=== PATIENT | male | born 1980 | race Caucasian/White ===

== ENCOUNTER 2018-01-16 17:41 | Observation (INO) ==
[2018-01-16] MEDS ORDERED: 0.9 % Sodium Chloride 1,000 ML IVC ONE ×2 (17:57→18:52)
--- NOTE | 2018-01-16 18:11 | Emergency Department Note ---
Disposition Clinical Impression: Dehydration Rhabdomyolysis Qualifiers: Rhabdomyolysis type: non-traumatic Qualified Code(s): M62.82 - Rhabdomyolysis Heat exhaustion Qualifiers: Encounter type: initial encounter Qualified Code(s): T67.5XXA - Heat exhaustion , unspecified, initial encounter Disposition: Admitted As Inpatient Condition: Good Referrals: Bushra Segura A AND P TECHNICIAN [Primary Care Provider] - [place] CNP [Family Provider] - Forms: ED Satisfaction Letter, Work/School Release Time of Disposition: 19:54 General Adult HPI - General Chief complaint: ED General Medical Stated complaint: Upper respiratory infection Time Seen by Provider: 01/16/18 17:56 Nursing Notes Reviewed: Yes Vital Signs Reviewed: Yes - History of Present Illness HPI Narrative: 37-year-old previously healthy gentleman presents from home for evaluation of concerns of dehydration. Patient works outside and has been out in the heat working including Sunday and Sunday wherein there were heat advisories. He tends to stay well-hydrated alternating water and Gatorade as well as drinking Pedialyte however, is concerned that he may have not been able to keep up. He describes generalized weakness, mild shortness of breath with exertion, twitching of the muscles of the left upper and lower extremities as well as nausea yesterday and loose stools 1 today. He has no family history of cardiac disease and management under 55 for woman under 65. No daily medications. No medical history of COPD, CAD or ACS, diabetes, renal dysfunction. Habits: Currently everyday [id number]-year history. No EtOH. Only illiciy is occasional THC. ROS: Positive: As above Negative: Fever, chills, vomiting, chest pain, palpitations, fever, chills, productive cough, dysuria, trauma. No melena or hematochezia. Pain Scale: 0 - Related Data Allergies Allergy/AdvReac Type Severity Reaction Status Date / Time No Known Allergies Allergy Verified 01/16/18 17:46 All systems ED: reviewed and negative except as stated. Review of Systems: As Per HPI Physical Exam Vital Signs Reviewed General: Patient is alert, oriented, and in no acute distress. He appears tired Head: atraumatic, normocephalic Eye: normal appearance, PERRL, EOMI, no scleral icterus, no conjunctival injection ENT: mucous membranes tacky, normal external ear exam Neck: normal inspection, trachea midline, full ROM Chest: normal inspection, symmetric chest rise Respiratory: Good respiratory effort. Bilateral breath sounds are clear without wheezing, crackles, or rhonchi. Cardiovascular: Regular rate and rhythm. No clicks, rubs, gallops, or murmors. Normal heart sounds. Abdomen: Bowel sounds present normoactive x-4 quadrants. Abdomen is soft, nondistended, and nontender. No guarding or rebound. No organomegaly noted. Musculoskeletal: Spontaneously moving all extremities. Skin: warm, dry, intact. Neuro: Alert and oriented x4. Sensation light touch intact. Strength 5/5 and equal in upper and lower extremities. DTR 2/4 and equal bilaterally in the brachioradial and patellar tendons. Psych: Patient's affect is appropriate for situation. Course Course Narrative: Patient is wearing a ball Which is new to him as of Sunday. This ball cap has multiple salt/sweat stains only from the last 2 days of working. He describes flulike symptoms concerning for rhabdomyolysis he continues to self-care with copious water and Pedialyte. Suspect this may have led to a single episode of loose stools. Patient's lab work showed rhabdomyolysis. Otherwise unremarkable. Patient continues to receive IV fluids; currently on second liter. I discussed the above with the patient and his . I discussed the cause of his symptoms in the context of muscle breakdown and my concern about potential kidney failure. I discussed the patient with the admitting hospitalist, Dr. Joseph, who agrees to accept the patient for continued evaluation and management. Vital Signs Temperature 97.8 F 01/16/18 17:44 Pulse Rate 69 01/16/18 17:44 Respiratory Rate 18 01/16/18 17:44 Blood Pressure 130/73 01/16/18 17:44 O2 Sat by Pulse Oximetry 98 01/16/18 17:44 Temperature 97.8 F 01/16/18 18:14 Pulse Rate 60 01/16/18 19:07 Respiratory Rate 18 01/16/18 19:07 Blood Pressure 130/91 01/16/18 19:07 O2 Sat by Pulse Oximetry 100 01/16/18 19:07 Oxygen Delivery Oxygen Delivery Room Air Medical Decision Making - Lab Data Result diagrams: 01/16/18 18:21 01/16/18 17:57 Lab Results 06/20/18 06/20/18 Range/Units 17:57 18:21 WBC 6.3 (4.3-11.1) K/mcL RBC 4.49 (4.19-5.50) M/mcL Hgb 14.6 (12.9-16.9) g/dL Hct 41.4 (37.5-50.1) % MCV 92.2 (83.0-100.0) fL MCH 32.5 (28.0-33.3) pg MCHC 35.3 (31.6-35.5) g/dL RDW 12.5 (11.5-14.5) % Plt Count 278 (140-400) K/mcL MPV 10.0 (9.4-12.4) fL Immature Gran % 0.3 (0-4) % Seg Neutrophils % 65.0 % Lymphocytes % 24.0 % Monocytes % 9.2 % Eosinophils % 1.0 % Basophils % 0.5 % Neutrophils # 4.1 (1.6-8.9) K/mcL Lymphocytes # 1.5 (0.6-4.6) K/mcL Monocytes # 0.6 (0.0-1.3) K/mcL Eosinophils # 0.1 (0.0-0.6) K/mcL Basophils # 0.0 (0.0-0.2) K/mcL Sodium 137 (136-145) mEq/L Potassium 4.1 (3.5-5.1) mEq/L Chloride 104 (98-107) mEq/L Carbon Dioxide 28 (23-29) mEq/L BUN 17 (6-20) mg/dL Creatinine 0.94 (0.70-1.30) mg/dL Est GFR ( Amer) > 60 (> 60) Est GFR (Non-Af Amer) > 60 (> 60) BUN/Creatinine Ratio 18 (6-26) Glucose 84 (70-105) mg/dL Calculated Osmolality 285 (280-300) Calcium 9.5 (8.6-10.3) mg/dL Creatine Kinase 2371 H (30-223) Units/L
[2018-01-16 18:31] LABS: Basophils % 0.5 %; Eosinophils # 0.1 K/mcL (0.0-0.6); Hematocrit 41.4 % (37.5-50.1); Hemoglobin 14.6 g/dL (12.9-16.9); Immature Granulocytes % 0.3 % (0-4); Lymphocytes # 1.5 K/mcL (0.6-4.6); Mean Corpuscular HGB Conc 35.3 g/dL (31.6-35.5); Mean Corpuscular Hemoglobin 32.5 pg (28.0-33.3); Mean Corpuscular Volume 92.2 fL (83.0-100.0); Monocytes # 0.6 K/mcL (0.0-1.3); Monocytes % 9.2 %; Neutrophils # 4.1 K/mcL (1.6-8.9); Platelet Count 278 K/mcL (140-400); Red Blood Count 4.49 M/mcL (4.19-5.50); Red Cell Distribution Width 12.5 % (11.5-14.5)
--- NOTE | 2018-01-16 18:48 | Emergency Department Note ---
Disposition Clinical Impression: Dehydration Disposition: Still a Patient Referrals: Bushra Segura CNP [Primary Care Provider] - Georgia Bishop CNP [Family Provider] - Forms: ED Satisfaction Letter, Work/School Release General Adult HPI - General Chief complaint: ED General Medical Stated complaint: Upper respiratory infection Time Seen by Provider: 01/16/18 17:56 - History of Present Illness Pain Scale: 0 - Related Data Allergies Allergy/AdvReac Type Severity Reaction Status Date / Time No Known Allergies Allergy Verified 01/16/18 17:46 Past Medical History - Past Medical History Medical history: Reports: no medical history - Social History Smoking Status: Current every day smoker Course Vital Signs Temperature 97.8 F 01/16/18 17:44 Pulse Rate 69 01/16/18 17:44 Respiratory Rate 18 01/16/18 17:44 Blood Pressure 130/73 01/16/18 17:44 O2 Sat by Pulse Oximetry 98 01/16/18 17:44 Temperature 97.8 F 01/16/18 18:14 Pulse Rate 69 01/16/18 18:14 Respiratory Rate 18 01/16/18 18:14 Blood Pressure 130/73 01/16/18 18:14 O2 Sat by Pulse Oximetry 98 01/16/18 18:14 Oxygen Delivery Oxygen Delivery Room Air Medical Decision Making - Lab Data Result diagrams: 01/16/18 18:21 Lab Results 01/16/18 Range/Units 18:21 WBC 6.3 (4.3-11.1) K/mcL RBC 4.49 (4.19-5.50) M/mcL Hgb 14.6 (12.9-16.9) g/dL Hct 41.4 (37.5-50.1) % MCV 92.2 (83.0-100.0) fL MCH 32.5 (28.0-33.3) pg MCHC 35.3 (31.6-35.5) g/dL RDW 12.5 (11.5-14.5) % Plt Count 278 (140-400) K/mcL MPV 10.0 (9.4-12.4) fL Immature Gran % 0.3 (0-4) % Seg Neutrophils % 65.0 % Lymphocytes % 24.0 % Monocytes % 9.2 % Eosinophils % 1.0 % Basophils % 0.5 % Neutrophils # 4.1 (1.6-8.9) K/mcL Lymphocytes # 1.5 (0.6-4.6) K/mcL Monocytes # 0.6 (0.0-1.3) K/mcL Eosinophils # 0.1 (0.0-0.6) K/mcL Basophils # 0.0 (0.0-0.2) K/mcL Attestation Statement - Attestation Attestation: I examined this patient and my medical decision-making was reviewed with the Resident Physician. I agree with the documented findings, disposition and treatment plan as described except to the extent set forth below. 37 year old male prente to the ED with compalints of flu like symptoms and has been working and appears to be moderately dehydrated. PAtinet has been drinking Pedia-lyte continously and still feels dehydrated. WE will rule out rhabdo and continue IVF hydration
[2018-01-16 19:19] LABS: BUN/Creatinine Ratio 18 (6-26); Blood Urea Nitrogen 17 mg/dL (6-20); Calcium 9.5 mg/dL (8.6-10.3); Carbon Dioxide 28 mEq/L (23-29); Chloride 104 mEq/L (98-107); Creatine Kinase 2371 Units/L (30-223); Glucose 84 mg/dL (70-105); Osmolality,Calculated 285 (280-300); Potassium 4.1 mEq/L (3.5-5.1); Sodium 137 mEq/L (136-145); eGFR For African Americans > 60 (> 60); eGFR For Non-African Americans > 60 (> 60)
--- NOTE | 2018-01-16 19:52 | Emergency Department Note ---
Disposition Clinical Impression: Dehydration Disposition: Still a Patient Referrals: Bushra Segura CNP [Primary Care Provider] - Georgia Bishop CNP [Family Provider] - Forms: ED Satisfaction Letter, Work/School Release General Adult HPI - General Chief complaint: ED General Medical Stated complaint: Upper respiratory infection Time Seen by Provider: 01/16/18 17:56 Nursing Notes Reviewed: Yes Vital Signs Reviewed: Yes - History of Present Illness Pain Scale: 0 - Related Data Allergies Allergy/AdvReac Type Severity Reaction Status Date / Time No Known Allergies Allergy Verified 01/16/18 17:46 Past Medical History - Past Medical History Medical history: Reports: no medical history - Social History Smoking Status: Current every day smoker Course Vital Signs Temperature 97.8 F 01/16/18 17:44 Pulse Rate 69 01/16/18 17:44 Respiratory Rate 18 01/16/18 17:44 Blood Pressure 130/73 01/16/18 17:44 O2 Sat by Pulse Oximetry 98 01/16/18 17:44 Temperature 97.8 F 01/16/18 18:14 Pulse Rate 60 01/16/18 19:07 Respiratory Rate 18 01/16/18 19:07 Blood Pressure 130/91 01/16/18 19:07 O2 Sat by Pulse Oximetry 100 01/16/18 19:07 Oxygen Delivery Oxygen Delivery Room Air Medical Decision Making - Lab Data Lab results reviewed: Yes I reviewed the patient's lab results. Result diagrams: 01/16/18 18:21 01/16/18 17:57 Lab Results 01/16/18 01/16/18 Range/Units 17:57 18:21 WBC 6.3 (4.3-11.1) K/mcL RBC 4.49 (4.19-5.50) M/mcL Hgb 14.6 (12.9-16.9) g/dL Hct 41.4 (37.5-50.1) % MCV 92.2 (83.0-100.0) fL MCH 32.5 (28.0-33.3) pg MCHC 35.3 (31.6-35.5) g/dL RDW 12.5 (11.5-14.5) % Plt Count 278 (140-400) K/mcL MPV 10.0 (9.4-12.4) fL Immature Gran % 0.3 (0-4) % Seg Neutrophils % 65.0 % Lymphocytes % 24.0 % Monocytes % 9.2 % Eosinophils % 1.0 % Basophils % 0.5 % Neutrophils # 4.1 (1.6-8.9) K/mcL Lymphocytes # 1.5 (0.6-4.6) K/mcL Monocytes # 0.6 (0.0-1.3) K/mcL Eosinophils # 0.1 (0.0-0.6) K/mcL Basophils # 0.0 (0.0-0.2) K/mcL Sodium 137 (136-145) mEq/L Potassium 4.1 (3.5-5.1) mEq/L Chloride 104 (98-107) mEq/L Carbon Dioxide 28 (23-29) mEq/L BUN 17 (6-20) mg/dL Creatinine 0.94 (0.70-1.30) mg/dL Est GFR ( Amer) > 60 (> 60) Est GFR (Non-Af Amer) > 60 (> 60) BUN/Creatinine Ratio 18 (6-26) Glucose 84 (70-105) mg/dL Calculated Osmolality 285 (280-300) Calcium 9.5 (8.6-10.3) mg/dL Creatine Kinase 2371 H (30-223) Units/L - Radiology Data Radiology results reviewed: Yes I reviewed the patient's radiology results. Chest X-Ray 01/16/18 17:57 IMPRESSION: No acute process. D/ / Ricardo Yen MD / Ricardo Yen MD Interpreting Provider: Ricardo Yen MD Attestation Statement - Attestation Attestation: I, Sridhar Odonnell MD, personally evaluated this patient and discussed their management with the resident physician. I reviewed the resident's note and agree with the documented findings, medical decision making, and plan of care. This patient was signed out at shift change from Dr. Rebecca Ramos. Patient presented with some flulike symptoms of muscle aches after working a lot out in the heat for the past several days. Concern for rhabdomyolysis. At shift change patient is awaiting CK results. On examination patient is a well-developed well-nourished well-appearing male in no acute distress. He is alert and oriented 3. There is no cyanosis or diaphoresis. CK returned 2371. Patient received 2 L of IV fluid in the emergency department. The hospitalist, Dr. Joseph, was consulted and accepted admission of the patient.
--- NOTE | 2018-01-16 20:49 | Internal Med History&Physical ---
Date of Encounter: 01/16/18 Time of Encounter: 20:02 Internal Medicine - H&P: HPI Chief complaint: generalized weakness Admitted From: Home Plans for Post Hospital Care: Home History of present illness: Mr. Longoria is a 37 year old male with past medical history of depression and anxiety who presented ot the ED with diffuse muscle cramping and SOB. Patient states that he began to have intermittent muscle cramping last week but it did not get bad until Sunday at his [employer] job where he worked 10 hours and he had muscle cramping most of the day with associated generalized weakness, light headed, and stopped sweating. He tried to hydrate yesterday by drinking Pedialyte but still had decrease urination, voiding 3 times throughout the day and dark urine. He stayed home from work yesterday due to his symptoms and came in today because he began to have SOB with mild excretion. He denied muscle pain until the last 2 days and contributes it to the cramping. Pain is still present in his right calf and left flank. His leg has not been red. Denies alcohol use, fever, rash, CP, palpitations. Upon arrival to the ED, patient's vitals are within normal limits. Electrolytes are within normal limits. Patient did have an elevated creatinine of 2371. Chest x-ray showed no acute process. Patient was given 2 L bolus of normal saline. Patient was admitted to the floor for possible rhabdomyosis and dehydration. Past Med Surg Social Fam HX - Past Medical History Medical history: no medical history - Social History Smoking Status: Current every day smoker Internal Medicine - H&P: Meds FLUoxetine HCl [Fluoxetine HCl] 40 mg PO DAILY 01/16/18 [History] Ibuprofen [Ibu] 800 mg PO DAILY PRN 01/16/18 [History] Pantoprazole Sodium 40 mg PO DAILY 01/16/18 [History] risperiDONE [Risperidone] 1 mg PO BID 01/16/18 [History] 3 Allergy/AdvReac Type Severity Reaction Status Date / Time No Known Allergies Allergy Verified 01/16/18 17:46 All Systems PM: A 10-system review of systems was performed and is negative for pertinent findings except as documented above in the HPI. - Constitutional Vitals: Temp Pulse Resp BP Pulse Ox 97.8 F 60 18 130/91 100 01/16/18 18:14 01/16/18 19:07 01/16/18 19:07 01/16/18 19:07 01/16/18 19:07 Exam: Constitutional: Alert, in no acute distress Head: Normocephalic, atraumatic Heart: Normal, regular rate and rhythm, no murmurs Lungs: Clear to auscultation, no wheezes, rales, or rhonchi Abdomen: Soft, nondistended, nontender, no guarding or rigidity. Extremities: right calf tender with palpation but no erythema or calor, pedal pulse 2/4, No edema, No clubbing, radial pulse +2/4, capillary refill <2sec. Skin: Skin warm and dry, no lesions, no rashes, no jaundice Neurologic: Cranial nerves II through XII grossly intact, strength 5/5 in all extremities Psych: Cooperative with exam, good eye contact, cognitive function intact, speech clear, thought process logical, and goal directed Internal Med - H&P Results - Labs CBC & Chem 7: 01/16/18 18:21 01/16/18 17:57 Labs: Short CBC 01/16/18 Range/Units 18:21 WBC 6.3 (4.3-11.1) K/mcL Hgb 14.6 (12.9-16.9) g/dL Hct 41.4 (37.5-50.1) % Plt Count 278 (140-400) K/mcL Neutrophils # 4.1 (1.6-8.9) K/mcL BMP 01/16/18 17:57 Sodium 137 Potassium 4.1 Chloride 104 Carbon Dioxide 28 BUN 17 Creatinine 0.94 Glucose 84 Calcium 9.5 - Impressions ITS Impressions Chest X-Ray 01/16/18 17:57 IMPRESSION: No acute process. D/ / Ricardo Yen MD / Ricardo Yen MD Interpreting Provider: Ricardo Yen MD - Assessment and plan (1) Rhabdomyolysis Current Visit: No Status: Acute Assessment and plan: Patient complaining of generalized weakness, muscle cramping, and dark urine. CK = 2371, well above 5x the normal limit. Currently electrolytes and creatinine are wnl. Patient given 2L bolus of NS in the ED. Plan: - NS 400ml/hr for 2L, then decrease to 200ml/hr - repeat CK level in the AM - check phos, albumin, mg Qualifiers: Rhabdomyolysis type: non-traumatic Qualified Code(s): M62.82 - Rhabdomyolysis (2) Dehydration Current Visit: No Status: Acute Assessment and plan: Decrease urine output, lightheaded, generalized weakness after working outside for 10 hours. No electrolyte abnormalities though. Continue aggressive rehydration with IV fluids. (3) Pain of left calf Current Visit: Yes Status: Acute Assessment and plan: Patient complaining of pain in his left calf. No redness or warmth. pulse present. Most likely 2/2 to rhabdo, dehydration, or muscle strain. No concerns at this time for a DVT. Will continue to monitor. Patient was placed on heparin for DVT prophylaxis. (4) DVT prophylaxis Current Visit: No Status: Acute Assessment and plan: Heparin SQ - Time Spent With Patient Total time spent is greater than 50% in coordination of care (as documented) at patient's floor/unit and/or counseling patient:
[2018-01-16] MEDS ORDERED: Naloxone 0.4 MG/ML INJ IVP PRN (21:04)
[2018-01-16] MEDS: 0.9 % Sodium Chloride 1,000 ML IVC SCH (21:57)
[2018-01-17] MEDS: 0.9 % Sodium Chloride 1,000 ML IVC SCH ×5 (00:42→16:16)
[2018-01-17] MEDS: *HR* Heparin 5,000 UNIT/ML VIAL SQ SCH ×3 (00:45→18:35)
[2018-01-17 06:54] LABS: Alanine Aminotransferase 32 Units/L (7-52); Albumin 3.4 g/dL (3.5-5.7); Albumin/Globulin Ratio 1.8 (1.1-2.2); Alkaline Phosphatase 48 Units/L (34-104); Aspartate Amino Transferase 64 Units/L (13-39); BUN/Creatinine Ratio 20 (6-26); Bilirubin,Total 0.2 mg/dL (0.3-1.0); Blood Urea Nitrogen 17 mg/dL (6-20); Calcium 8.2 mg/dL (8.6-10.3); Carbon Dioxide 27 mEq/L (23-29); Chloride 112 mEq/L (98-107); Globulin 1.9 g/dL (2.4-3.5); Glucose 86 mg/dL (70-105); Magnesium 1.9 mg/dL (1.6-2.6); Osmolality,Calculated 293 (280-300); Phosphorous 2.7 mg/dL (2.7-4.5); Potassium 4.7 mEq/L (3.5-5.1); Sodium 141 mEq/L (136-145); Total Protein 5.3 g/dL (6.4-8.9); eGFR For African Americans > 60 (> 60); eGFR For Non-African Americans > 60 (> 60)
--- NOTE | 2018-01-17 08:59 | Event Note ---
Date of Encounter: 01/16/18 Time of Encounter: 21:30 I saw and evaluated the patient. I reviewed the residents note and agree with findings and plan as documented in the residents note.
[2018-01-17] MEDS: FLUoxetine 20 MG CAPSULE PO SCH (09:42)
--- NOTE | 2018-01-17 10:38 | Internal Med Progress Note ---
Date of Encounter: 01/17/18 Time of Encounter: 10:34 - Assessment and plan (1) Rhabdomyolysis Current Visit: No Status: Acute Assessment and plan: Patient complaining of generalized weakness, muscle cramping, and dark urine. 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 and was not hydrating appropriately Rhabdomyolysis likely 2/2 dehydration and over exertion Repeat CK, 1894, renal function remained stable Has received 5 L normal saline, continue IVF at 125 mL per hour Recheck CK this afternoon then daily Monitoring electrodes closely and replete as necessary Closely monitor intake and output and renal function Encouraged to increase oral intake As long as renal function remains stable and CK continues to decrease consider discharge tomorrow Qualifiers: Rhabdomyolysis type: non-traumatic Qualified Code(s): M62.82 - Rhabdomyolysis (2) Dehydration Current Visit: No Status: Inactive Assessment and plan: Admitted with dehydration and rhabdomyolysis Has received 5 L of normal saline Urinary output improving, generalized weakness, lightheadedness and dizziness improving No electrolyte abnormalities on today's labs Decrease IVF to 125 mL per hour Continue to monitor his lites and replete as necessary (3) Pain of left calf Current Visit: Yes Status: Acute Assessment and plan: Mild left calf pain No swelling, erythema or tenderness to palpation PT/DP pulses palpable Most likely 2/2 rhabdomyolysis and dehydration No concerns for DVT at this time, SQ heparin for DVT prophylaxis (4) DVT prophylaxis Current Visit: No Status: Acute Assessment and plan: SQ heparin - Time Spent With Patient Total time spent is greater than 50% in coordination of care (as documented) at patient's floor/unit and/or counseling patient: 25 - 35 minutes - Subjective Interval history: Patient seen and examined at bedside today. No acute changes overnight. Continued reports some mild left calf pain but denies any swelling or tenderness. - Constitutional Vitals: Temp Pulse Resp BP Pulse Ox 98.4 F 66 16 107/59 98 01/17/18 10:03 01/17/18 10:03 01/17/18 10:03 01/17/18 10:03 01/17/18 10:03 General appearance: Present: A&O X 3, no acute distress, answers questions appropriately - Head Head exam: Present: atraumatic, normocephalic - Eye Eye exam: Present: PERRL, conjuntiva pink, sclera anicteric Pupils: Present: PERRL - Neck Neck exam general surgery: Present: supple, trachea midline. Absent: lymphadenopathy - Respiratory Respiratory exam: Present: CTAB. Absent: accessory muscle use, rales, rhonchi, wheezes - Cardiovascular Cardiovascular exam: Present: RRR, +S1, +S2. Absent: diastolic murmur, gallop, rubs, systolic murmur - GI/Abdominal GI/Abdominal exam: Present: normal bowel sounds, soft, no peritoneal signs. Absent: distended, tenderness - Extremities Exam Extremities exam: Present: warm, radial pulses palpable and symmetrical. Absent : calf tenderness, cyanotic, pedal edema - Neurological Exam Neurological exam: Present: CN II-XII intact, oriented X3, no focal deficits. Absent: pronater drift, facial droop, speech deficit - Skin Skin exam: Present: dry, intact Internal Medicine: Result - Labs CBC & Chem 7: 01/16/18 18:21 01/17/18 04:47 Labs: BMP 01/17/18 04:47 Sodium 141 Potassium 4.7 Chloride 112 H Carbon Dioxide 27 BUN 17 Creatinine 0.84 Glucose 86 Calcium 8.2 L Liver Function 01/17/18 Range/Units 04:47 Total Bilirubin 0.2 L (0.3-1.0) mg/dL AST 64 H (13-39) Units/L ALT 32 (7-52) Units/L Alkaline Phosphatase 48 (34-104) Units/L Albumin 3.4 L (3.5-5.7) g/dL Consult Discharge Plan - Plan Referrals: Bushra Segura CNP [Primary Care Provider] -
[2018-01-17 16:32] LABS: Bilirubin,Urine Negative (Negative); Blood,Urine Negative (Negative); Clarity,Urine Clear (Clear); Color,Urine Yellow (Yellow); Glucose,Urine (UA) 100 mg/dL (Normal); Ketones,Urine Negative (Negative); Leukocyte Esterase,Urine Negative (Negative); Nitrite,Urine Negative (Negative); Protein,Urine Negative (Neg-Trace); Specific Gravity,Urine 1.018 (1.010-1.025); Urobilinogen,Urine Normal (Normal)
[2018-01-17] MEDS: risperiDONE 1 MG TABLET PO SCH (22:23)
[2018-01-18] MEDS: 0.9 % Sodium Chloride 1,000 ML IVC SCH ×2 (00:37→08:29)
[2018-01-18 06:46] VITALS: BP 127/76
[2018-01-18] MEDS: *HR* Heparin 5,000 UNIT/ML VIAL SQ SCH (08:08)
[2018-01-18] MEDS: risperiDONE 1 MG TABLET PO SCH (08:11)
[2018-01-18] MEDS: FLUoxetine 20 MG CAPSULE PO SCH (08:11)
--- NOTE | 2018-01-18 10:15 | Discharge Summary ---
Date of Encounter: 01/18/18 Time of Encounter: 10:11 - Discharge Diagnosis (1) Rhabdomyolysis Priority: Primary Status: Resolved Qualifiers: Rhabdomyolysis type: non-traumatic Qualified Code(s): M62.82 - Rhabdomyolysis (2) DVT prophylaxis Priority: Secondary Status: Resolved (3) Pain of left calf Priority: Secondary Status: Resolved Hospital course: Mr. Longoria is a 37 year old male with past medical history of depression and anxiety who presented ot the ED with diffuse muscle cramping and SOB. Patient states that he began to have intermittent muscle cramping last week but it did not get bad until Sunday at his [employer] job where he worked 10 hours and Upon arrival to the ED, patient's vitals are within normal limits. Electrolytes are within normal limits. Patient did have an elevated creatinine of 2371. Chest x-ray showed no acute process. Patient was given 2 L bolus of normal saline. Patient was admitted to the floor for possible rhabdomyosis and dehydration. paient is doing well, calf pain resolved and CK trending down, he has been tolerating diet. Patient is discharged on stable condition. Discharge discussed with: patient, family Time spent discussing smoking cessation with patient: 3 to 10 minutes - Time Spent with Patient Total time spent providing and/or coordinating discharge services: Less than 30 minutes - Discharge Medications Home Medications: FLUoxetine HCl [Fluoxetine HCl] 40 mg PO DAILY 01/16/18 [History] Ibuprofen [Ibu] 800 mg PO DAILY PRN 01/16/18 [History] Pantoprazole Sodium 40 mg PO DAILY 01/16/18 [History] risperiDONE [Risperidone] 1 mg PO BID 01/16/18 [History] Allergies/Adverse Reactions: 3 Allergy/AdvReac Type Severity Reaction Status Date / Time No Known Allergies Allergy Verified 01/16/18 17:46 Date of admission: 01/16/18 20:08 Primary care physician: Bushra Segura CNP - Constitutional Vitals: Temp Pulse Resp BP Pulse Ox 97.8 F 59 16 127/76 99 01/18/18 06:42 01/18/18 06:42 01/18/18 06:42 01/18/18 06:42 01/18/18 06:42 General appearance: Present: A&O X 3, no acute distress, answers questions appropriately Exam: CONSTITUTIONAL: patient appears as an age appropriate male in no acute distress. EYES Clear sclerae, bilateral pupils are equal, reactive to light. EMOI. RESPIRATORY: No accessory muscle use, bilateral clear to auscultation, no wheezing, no crackles/rales. CARDIOVASCULAR: Regular heart rate, normal S1 and S2, no murmurs GASTROINTESTINAL: bowel sounds present, soft, no tenderness. MUSCULOSKELETAL: Joints in normal range of motion, no clubbing, no edema, no cyanosis. Bilateral peripheral pulses 2+. NEUROLOGIC: CN II to XII are grossly intact, no focal neurological deficit. - Patient Status Disposition: Home, Self-Care Condition: Good Functional capacity at discharge: independent ambulation Overall status at discharge: patient is back to baseline - Discharge Instructions Follow Up With: Nadia Beltran MD [Non-Partnered Physician] - 02/06/18 10:20 am - Diet and Activity Diet: advance to your usual diet
== END 2018-01-18 11:13 | disposition home or self-care (01) ==
LOC: 3ANU 17:41 → EMEROO 17:41 → SUATTDRO 20:08 → 3ANU 20:44
PROVIDERS: ADMIT Family Medicine; ATTEND Hospitalist